=== PATIENT | female | born 1990 | race African-American/Black ===

== ENCOUNTER 2020-08-12 09:59 | Inpatient (IN) | payer OTHER, SELFPAY ==
[2020-08-12] VITALS (60 sets, daily range): BP systolic 72–161; BP diastolic 38–142; PULSE 57–135; RESP 14–21; TEMP 36.1–36.8; O2SAT 82–100; BMI 28.4
[2020-08-12 10:57] LABS: Basophils Percent Auto 0.4 % (0.2-1.2); Eosinophils Absolute Auto 0.1 K/mm3 (0-0.3); Eosinophils Percent Auto 1.2 % (0-4.4); Hematocrit 31.7 % (37.0-47.0); Hemoglobin 10.7 g/dL (12.0-15.0); Immature Granulocyte Absolute 0.08 K/mm3 (0.00-0.031); Lymphocytes Absolute Auto 1.82 K/mm3 (0.9-3.2); Lymphocytes Percent Auto 22.7 % (18.3-44.2); Mean Corpuscular HGB Conc 33.8 g/dl (32-36); Mean Corpuscular Hemoglobin 30.7 pg (26-34); Mean Corpuscular Volume 90.8 fl (80-100); Mean Platelet Volume 9.5 fl (7.4-10.4); Monocytes Absolute Auto 0.6 K/mm3 (0.1-0.6); Monocytes Percent Auto 7.9 % (2.6-8.5); Neutrophils Absolute Auto 5.4 K/mm3 (1.3-6.7); Neutrophils Percent Auto 66.8 % (45.5-73.1); Platelet Count Result 194 k/mm3 (150-375); Red Blood Count 3.49 M/mm3 (4.2-5.4); Red Cell Distribution Width 12.9 % (11.5-14.5)
[2020-08-12] MEDS: LACTATED RINGERS 1,000 ML 125 ML IV CONT (11:06)
--- NOTE | 2020-08-12 11:20 | WPDANESEPPF ---
Anes - Initial Pre Proc Eval Procedure: Operation Date: 08/12/20 12:00 Proposed Procedures p Repeat Section - Park Barrera MD Date/Time: 08/12/20 11:20 Surgeon: Park Barrera MD Pre Op Diagnosis: Patient Data Age: 30 Gender: F Height: Weight: Last Vital Signs Pulse 93 08/12/20 10:45 BP 108/68 08/12/20 10:45 Allergies Allergy/AdvReac Type Severity Reaction Status Date / Time latex Allergy Rash Verified 07/22/20 15:43 Home Medications Medication Instructions Recorded Confirmed Type PNV cmb#95-ferrous fumarate-FA 1 tablet PO DAILY 07/22/20 07/22/20 History [] Laboratory Tests 08/12/20 08/12/20 10:46 10:46 WBC 8.0 K/mm3 K/mm3 (4.5-10.0) RBC 3.49 M/mm3 L M/mm3 (4.2-5.4) Hgb 10.7 g/dL L g/dL (12.0-15.0) Hct 31.7 % L % (37.0-47.0) MCV 90.8 fl fl (80-100) MCH 30.7 pg pg (26-34) MCHC 33.8 g/dl g/dl (32-36) RDW 12.9 % % (11.5-14.5) Plt Count 194 k/mm3 k/mm3 (150-375) MPV 9.5 fl fl (7.4-10.4) Immature Gran % (Auto) 1.0 % H % (0-0.5) Neut % (Auto) 66.8 % % (45.5-73.1) Lymph % (Auto) 22.7 % % (18.3-44.2) Amelia % (Auto) 7.9 % % (2.6-8.5) Eos % (Auto) 1.2 % % (0-4.4) Baso % (Auto) 0.4 % % (0.2-1.2) Lymph # (Auto) 1.82 K/mm3 K/mm3 (0.9-3.2) Amelia # (Auto) 0.6 K/mm3 K/mm3 (0.1-0.6) Eos # (Auto) 0.1 K/mm3 K/mm3 (0-0.3) Baso # (Auto) 0.0 K/mm3 K/mm3 (0.0-0.1) Abs Immat Gran (auto) 0.08 K/mm3 H K/mm3 (0.00-0.031) Absolute Neuts (auto) 5.4 K/mm3 K/mm3 (1.3-6.7) Absolute Nucleated RBC 0.0 K/mm3 K/mm3 (0.0-0.012) Nucleated RBC % 0.0 % % (0.0-0.2) RPR Pending Patient hx anesthesia problems: none Family hx anesthesia problems: none REPLACED BY [facility] Family History Family History (Updated 07/22/20 @ 15:34 by Cruz Mariscal RN) Mother Seizures Bipolar 1 disorder Social History Social History Substance use: current Gender identity (if verbalized by the patient): Female Spiritual care concerns: No Anes - Eval Final PreProcedure Day of Procedure 08/12/20 11:20 Patient weight: overweight Heart: regular rate and rhythm Lungs: clear to auscultation and normal air movement Airway: Mallampati scale class II Neurological: alert and oriented Last oral intake: >/= 8 hours ASA classification: II Emergent: no Anesthetic plan: proceed Anesthesia type and monitoring: regional spinal Informed Consent: The patient's anesthetic plan and its attendant risks and benefits were discussed with the patient/family/POA. Questions were solicited and answers provided to the satisfaction of the patient/family/POA.
--- NOTE | 2020-08-12 11:29 | LDADM ---
This patient, Benigno Morfin, was admitted to OB Post 117 on 08/12/20 at 09:59. Plans for labor, pain management and were discussed with patient. Patient/family oriented to hospital policies and general routines including ID bracelet, bed and alarms, visiting hours, pain management, procedures, bathroom and other care routines, personal items, smoking policy, room service/diet and guest tray routines, infant security routines, and visiting hours. Patient/Family are encouraged to report perceived risks to care and to ask questions if they do not understand what they are told or what they should do. See OBIX for further documentation.
--- NOTE | 2020-08-12 12:09 | PM.IMHP ---
H&P: HPI History of Present Illness Date/Time: 08/12/20 12:09 Chief Complaint: repeat CS Narrative: Pt is a at 39.1 for repeat CS. uncomplicated except by MJ use. Review of Systems Review of Systems: All systems reviewed & are unremarkable except as noted in HPI and below PMFSH Family History Family History (Updated 07/22/20 @ 15:34 by Cruz Mariscal RN) Mother Seizures Bipolar 1 disorder Social History Social History Smoking status: Former smoker Substance use: current Gender identity (if verbalized by the patient): Female Spiritual care concerns: No Meds Home Medications and Allergies Home Medications Medication Instructions Recorded Confirmed Type PNV cmb#95-ferrous fumarate-FA 1 tablet PO DAILY 07/22/20 07/22/20 History [] Allergies Allergy/AdvReac Type Severity Reaction Status Date / Time latex Allergy Rash Verified 07/22/20 15:43 Vital Signs Vital Signs - 24 hr 08/12/20 10:42 08/12/20 10:45 Pulse Rate 85 93 Blood Pressure 109/63 108/68 Exam Const: General: no acute distress Resp: Effort & Inspection: normal respiratory effort Auscultation: clear to auscultation bilaterally Cardio: Rate: regular rate Rhythm: regular rhythm GI: GI Palp: Yes Soft to palpation Extrem: General: normal to inspection H&P: Results Labs Labs: Short CBC 08/12/20 Range/Units 10:46 WBC 8.0 (4.5-10.0) K/mm3 Hgb 10.7 L (12.0-15.0) g/dL Hct 31.7 L (37.0-47.0) % Plt Count 194 (150-375) k/mm3 Assessment and Plan Additional Plan Plan Repeat CS Discussed RBA, pt consented, all questions answered. will proceed.
--- NOTE | 2020-08-12 12:11 | WPDHPUPDATE1 ---
History and Physical Update Update Date/Time: 08/12/20 12:11 History and Physical has been reviewed, including an updated exam of the patient. There are NO changes in the patient's condition. Risks, benefits, and alternatives have been discussed and questions answered. Patient agrees to proceed with procedure.
[2020-08-12 12:20] LABS: Amphetamine Screen Urine Negative (Negative); Barbiturate Screen Urine Negative (Negative); Benzodiazepines Screen Urine Negative (Negative); Cannabinoid Screen Urine Positive (Negative); Cocaine Screen Urine Negative (Negative); Methadone Screen Urine Negative (Negative); Opiate Screen Urine Negative (Negative); Phencyclidine Screen Urine Negative (Negative)
[2020-08-12] MEDS: LACTATED RINGERS 1,000 ML 999 ML IV CONT (13:00)
--- NOTE | 2020-08-12 13:06 | PM.OBPRVD ---
OB - Delivery Note Procedure Delivery date: 08/12/20 Procedure: Procedures Operation Date: 08/12/20 12:00 <No data on this case meets the specified criteria> Repeat CS Intrapartal events: None Route of delivery: Specimen: Yes (placenta) Quantitative Blood Loss (ml): 300 Anesthesia type: Spinal Disposition: floor Complications: none Narrative: The patient was taken to the OR and received spinal anesthesia. She was placed in dorsal supine position with left lateral tilt. SCDs and coon were placed. She was prepped and draped in the normal sterile fashion. A Pfannensteil skin incision was made and carried through to the underlying layer of fascia. The fascia was incised in the midline and then extended laterally using Webb scissors. The muscles were in the midline and the peritoneum was entered bluntly. The peritoneal incision was extended inferiorly and superiorly with care to avoid the bladder. The bladder blade was then inserted, the vesicouterine peritoneum was grasped, incised with Metzenbaum scissors, and a bladder flap created. The bladder blade was reinserted. A low transverse uterine incision was made with a scalpel and extended bluntly. AROM was performed and fluid was noted to be clear. The head was delivered, followed by the remainder of the baby. The baby's oropharynx was suctioned. After 30 seconds, the cord was clamped and cut and the infant was handed off. Cord blood was obtained and the placenta was then removed manually. The uterus was exteriorized. A moist lap sponge was used to curette the endometrium. The uterine incision was then closed with one layer of 0-Vicryl in a running, locking fashion. Good hemostasis was noted. The posterior cul de sac was irrigated with normal saline and cleared of all clot and debris. The uterus was returned to the abdomen. Both lateral gutters were then irrigated. The rectus muscles were inspected and found to be hemostatic. The fascia was reapproximated using 0-Vicryl in running fashion. The subcutaneous tissue was irrigated with normal saline and made hemostatic with Bovie electrocautery. The skin was then closed with 4-0 Vicryl in a subcuticular fashion. Steri strips and a bandage were applied. The uterus was evacuated. The patient tolerated the procedure very well. All counts were correct. She was taken to the recovery room in good condition. Baby Date of : 08/12/20 Time of : 12:36 Weeks of gestation at delivery: 39 Infant gender: Male Weight (pounds): 6 Weight (ounces): 5 presentation: vertex Placenta delivery description: Manual Removal cord vessel description: 3 Vessels score one minute: 8 score five minutes: 9
[2020-08-12] MEDS: ONDANSETRON INJ 4 MG/2 ML VIAL IV PUSH (13:49)
[2020-08-12] MEDS: OXYTOCIN 30 UNITS/NS 500 ML 30 UNITS/500 ML BAG 125 UNITS IV CONT (14:05)
--- NOTE | 2020-08-12 15:33 | OBPPTRN ---
Patient transferred to post room #278 via stretcher. PT unaccompanied other than in open crib. PT received instructions and education per one to one discussion, demonstration and mom baby care guide. No barriers to learning identified. PT was the recipient of all instructions. Oriented to unit, room, information board, rooming in, admission packet and security measures. breast feeding and daily care activities. Patient verbalizes understanding.
[2020-08-12] MEDS: diphenhydrAMINE HCl INJ 50 MG/ML VIAL 12.5 MG IV PUSH (17:48)
[2020-08-12] MEDS: KETOROLAC 30 MG/ML VIAL (*BKC) IV PUSH (17:48)
[2020-08-12] MEDS: LANOLIN (LANSINOH) 7.5 GM CREAM 1 APPLIC TOPICAL (17:49)
[2020-08-12] MEDS: diphenhydrAMINE HCl INJ 50 MG/ML VIAL 25 MG IV PUSH (22:41)
[2020-08-13 05:00] VITALS: BP 120/74; PULSE 71; RESP 16; TEMP 36.5; O2SAT 99
[2020-08-13] MEDS: IBUPROFEN 600 MG TABLET PO ×3 (05:06→17:50)
[2020-08-13] MEDS: HYDROcodone/acetaminophen (*CRX) 5-325 MG TABLET 1 TAB PO ×3 (05:06→14:40)
[2020-08-13 05:24] LABS: Basophils Percent Auto 0.3 % (0.2-1.2); Eosinophils Absolute Auto 0.1 K/mm3 (0-0.3); Hematocrit 32.3 % (37.0-47.0); Hemoglobin 10.9 g/dL (12.0-15.0); Immature Granulocyte Absolute 0.05 K/mm3 (0.00-0.031); Immature Granulocyte Percent A 0.4 % (0-0.5); Lymphocytes Absolute Auto 1.69 K/mm3 (0.9-3.2); Lymphocytes Percent Auto 15.1 % (18.3-44.2); Mean Corpuscular HGB Conc 33.7 g/dl (32-36); Mean Corpuscular Hemoglobin 31.8 pg (26-34); Mean Corpuscular Volume 94.2 fl (80-100); Mean Platelet Volume 9.6 fl (7.4-10.4); Monocytes Absolute Auto 0.8 K/mm3 (0.1-0.6); Monocytes Percent Auto 7.2 % (2.6-8.5); Neutrophils Absolute Auto 8.5 K/mm3 (1.3-6.7); Platelet Count Result 216 k/mm3 (150-375); Red Blood Count 3.43 M/mm3 (4.2-5.4); Red Cell Distribution Width 12.8 % (11.5-14.5); White Blood Count 11.2 K/mm3 (4.5-10.0)
--- NOTE | 2020-08-13 07:42 | WPDANLDNPN2 ---
Anes-Prog Note L&D-Neuraxial Date/Time: 08/13/20 07:42 Neuraxial medications: intrathecal PF morphine Opiod-related complaints: none Patient feedback: Patient satisfied with post-operative pain management.
--- NOTE | 2020-08-13 07:42 | WPDANLDPN2 ---
Anes-Prog Note L&D Date/Time: 08/13/20 07:42 Comfortable throughout: section Neuraxial method: spinal Epidural/Spinal procedure site: clean & non-tender Neuro status: Neuro function grossly intact. Cardiovascular status: normal Respiratory status: normal Airway patency: baseline Mental status: baseline Post-Op hydration status: normal Vital Signs: Last Vital Signs Temp 36.5 C 08/13/20 05:00 Pulse 71 08/13/20 05:00 Resp 16 08/13/20 05:00 BP 120/74 08/13/20 05:00 Pulse Ox 99 08/13/20 05:00 Pain score (VAS): 0 I/O: Intake & Output 08/12/20 08/12/20 08/13/20 15:59 23:59 07:59 Intake Total 1100 Output Total 239 509 8156 Balance 600 -925 -1500 Post-procedural complaints: none Patient feedback: Patient satisfied with anesthetic care.
--- NOTE | 2020-08-13 08:16 | PM.OBPNVD ---
OB - PN: Subj Subjective Date/time seen: 08/13/20 08:16 Patient comments: no complaints baby status: NICU [place] feeding status: pumping and storing Narrative: POD 1 from primary CS. Doing well. Normal lochia. Eating, ambulating, coon out, has voided. OB - PN: Obj Data Labs CBC & Chem 7: 08/13/20 04:51 Labs: Laboratory Results - last 24 hr 08/12/20 08/12/20 08/12/20 10:46 10:46 10:46 WBC 8.0 RBC 3.49 L Hgb 10.7 L Hct 31.7 L MCV 90.8 MCH 30.7 MCHC 33.8 RDW 12.9 Plt Count 194 MPV 9.5 Immature Gran % (Auto) 1.0 H Neut % (Auto) 66.8 Lymph % (Auto) 22.7 Hitchcock % (Auto) 7.9 Eos % (Auto) 1.2 Baso % (Auto) 0.4 Lymph # (Auto) 1.82 Hitchcock # (Auto) 0.6 Eos # (Auto) 0.1 Baso # (Auto) 0.0 Abs Immat Gran (auto) 0.08 H Absolute Neuts (auto) 5.4 Absolute Nucleated RBC 0.0 Nucleated RBC % 0.0 Urine Opiates Screen Negative Urine Methadone Screen Negative Ur Barbiturates Screen Negative Ur Phencyclidine Scrn Negative Ur Amphetamine Screen Negative U Benzodiazepines Scrn Negative Urine Cocaine Screen Negative U Cannabinoids Screen Positive A Blood Type O Positive Antibody Screen Negative 08/13/20 04:51 WBC 11.2 H RBC 3.43 L Hgb 10.9 L Hct 32.3 L MCV 94.2 MCH 31.8 MCHC 33.7 RDW 12.8 Plt Count 216 MPV 9.6 Immature Gran % (Auto) 0.4 Neut % (Auto) 76.0 H Lymph % (Auto) 15.1 L Hitchcock % (Auto) 7.2 Eos % (Auto) 1.0 Baso % (Auto) 0.3 Lymph # (Auto) 1.69 Hitchcock # (Auto) 0.8 H Eos # (Auto) 0.1 Baso # (Auto) 0.0 Abs Immat Gran (auto) 0.05 H Absolute Neuts (auto) 8.5 H Absolute Nucleated RBC 0.0 Nucleated RBC % 0.0 Urine Opiates Screen Urine Methadone Screen Ur Barbiturates Screen Ur Phencyclidine Scrn Ur Amphetamine Screen U Benzodiazepines Scrn Urine Cocaine Screen U Cannabinoids Screen Blood Type Antibody Screen OB - PN A/P Plan day: 1 Plan: routine care Comments: consented for circumcision. Time Spent With Patient Time: Total time spent is greater than 50% in coordination of care (as documented) at patient's floor/unit and/or counseling patient: Exam Narrative: Exam Narrative: NAD abdomen soft, appropriately tender, incision bandaged Extremities nontender with 1+ edema
[2020-08-13 09:15] VITALS: BP 107/59; PULSE 68; RESP 18; TEMP 36.4; O2SAT 99
[2020-08-13] MEDS: MULTIVIT/MIN/PREN/FOL AC/IRON TABLET 1 TAB PO (10:12)
[2020-08-13] MEDS: DOCUSATE SODIUM 100 MG CAPSULE PO ×2 (10:13→17:50)
--- NOTE | 2020-08-13 14:19 | PC.NURSE ---
0937 Pt given the Marijuana and Breast feeding handout ; pt states that Dr. Vila spoke to her about this, recommending to not breast feed is she is going to smoke marijauna. Pt wants to continue breast feeding.
[2020-08-13] MEDS: SIMETHICONE 80 MG TAB.CHEW PO (17:51)
[2020-08-13] MEDS: HYDROcodone/acetaminophen (*CRX) 10-325 MG TABLET 1 TAB PO ×2 (17:51→21:08)
[2020-08-13 21:05] VITALS: BP 110/71; PULSE 74; RESP 18; TEMP 36.6; O2SAT 98
--- NOTE | 2020-08-13 22:20 | PC.NURSE ---
Patient viewed the discharge video Mother & Baby Care, The First Two Weeks . Patient was given the opportunity and encouraged to ask questions. Patient verbalized understanding of information shared and has been given the mother/baby guide for home reference.
[2020-08-14] MEDS: HYDROcodone/acetaminophen (*CRX) 5-325 MG TABLET 1 TAB PO ×3 (00:49→09:15)
[2020-08-14] MEDS: IBUPROFEN 600 MG TABLET PO ×2 (00:50→09:14)
[2020-08-14] MEDS: MULTIVIT/MIN/PREN/FOL AC/IRON TABLET 1 TAB PO (09:14)
[2020-08-14] MEDS: SIMETHICONE 80 MG TAB.CHEW PO (09:14)
[2020-08-14] MEDS: DOCUSATE SODIUM 100 MG CAPSULE PO (09:14)
--- NOTE | 2020-08-14 09:45 | P.PNOB_ITS ---
OB - PN: Subj Subjective Date/time seen: 08/14/20 09:45 Interval history: Doing great, just sore, wants to go home. Patient comments: no complaints and pain well controlled [place] baby status: doing well feeding status: breast and bottle feeding OB - PN: Obj Data Labs CBC & Chem 7: 08/13/20 04:51 OB - PN A/P Plan day: 2 Plan: routine care and discharge home Comments: Fu 4 weeks. Precautions and discharge instructions given. Time Spent With Patient Time: Total time spent is greater than 50% in coordination of care (as docume nted) at patient's floor/unit and/or counseling patient: Exam Narrative: Exam Narrative: NAD abdomen soft, appropriately tender, incision CDI Extremities nontender with 1+ edema
--- NOTE | 2020-08-14 09:51 | P.DS_ITS ---
DS: Admitting Diagnosis Admitting Diagnosis Admitting Diagnosis: term IUP, prior CS DS: Discharge Diagnosis Discharge Diagnosis (1) delivery delivered: Code(s): O82 - Encounter for delivery without indication Status: Acute OB - DS: Summary OB Procedures : Ultrasound OB Procedures Intrapartum: OB Procedures: : None Peripartum Data Delivery Method: Section Procedures: Procedures Operation Date: 08/12/20 12:00 Actual Procedure Side Surgeon p Repeat Section Park Barrera MD complications: none Status at Discharge Functional status at discharge: independent ambulation Time Spent with Patient Time attestation: Total time spent providing and/or coordinating discharge services: Exam Narrative: Exam Narrative: NAD abdomen soft, appropriately tender, incision CDI Discharge Plan Discharge Attending physician on discharge: Park Barrera Discharging Clinician: Park Barrera Anticipated Discharge Date/Time: 08/14/20 15:00 Patient Disposition: Home, Self-Care Activity: may shower, may drive after 2 weeks and pelvic rest Diet: as tolerated Patient Instructions: Antibiotic Form Stand Alone Forms: General Discharge Information Follow-up/Referrals: Park Barrera MD [Physician] - (1 week) Discharge Medications: New hydrocodone-acetaminophen 5-325 mg Tablet 1 tablet PO Q4-6H PRN (Reason: Moderate Pain (4-6)) Qty: 30 RF: 0 docusate sodium 100 mg Capsule 100 mg PO BID PRN (Reason: constipation) Qty: 60 RF: 1 ibuprofen 600 mg Tablet 600 mg PO Q6H PRN (Reason: Cramping) Qty: 60 RF: 1 Continued PNV cmb#95-ferrous fumarate-FA [] 28 mg iron- 800 mcg Tablet 1 tablet PO DAILY RF: 0 Date of admission: 08/12/20 09:59 Primary Care Provider: PHYSICIAN,SALES AND SERVICE ADVISOR Admitting Provider: Park Barrera Attending physician on admission: Park Barrera Condition: Stable
[2020-08-14 10:12] VITALS: PULSE 74; RESP 18; O2SAT 98
[2020-08-15 09:26] LABS: Rapid Plasma Reagin Non-Reactive (NonReactive)
[2020-08-16 09:06] VITALS: BP 116/81; PULSE 77; RESP 16; TEMP 36.8; O2SAT 100
== END 2020-08-14 12:35 | disposition home or self-care (01) | DRG 540 ==
LOC: ANHOBPP 10:07 → ANHOB2 15:38
PROVIDERS: Admitting Provider Obstetrics & Gynecology; Visit Provider Obstetrics & Gynecology
PROC: 10D00Z1 Extraction of Products of Conception, Low, Open Approach (ICD-10-PCS; CPT 59514; principal; 2020-08-12 12:00)
DX: O34.211 Maternal care for low transverse scar from previous cesarean delivery (principal); Z37.0 Single live birth; Z3A.39 39 weeks gestation of pregnancy; O99.324 Drug use complicating childbirth; F12.90 Cannabis use, unspecified, uncomplicated
CPT/HCPCS: 36415; 80307; 85025; 86592; 86850; 86900; 86901; A9270; J0131; J1200; J1885; J2210; J2274; J2405; J2590; J7120

== ENCOUNTER 2020-08-30 12:45 | Outpatient (CLI) | payer OTHER, SELFPAY ==
[2020-08-30] VITALS (11 sets, daily range): BP systolic 105–179; BP diastolic 77–101; PULSE 57–75; RESP 18; TEMP 36.4
[2020-08-30 13:25] LABS: Eosinophils Absolute Auto 0.2 K/mm3 (0-0.3); Eosinophils Percent Auto 3.9 % (0-4.4); Hematocrit 35.5 % (37.0-47.0); Immature Granulocyte Absolute 0.01 K/mm3 (0.00-0.031); Immature Granulocyte Percent A 0.2 % (0-0.5); Lymphocytes Absolute Auto 1.36 K/mm3 (0.9-3.2); Lymphocytes Percent Auto 33.3 % (18.3-44.2); Mean Corpuscular Volume 96.7 fl (80-100); Mean Platelet Volume 8.7 fl (7.4-10.4); Monocytes Absolute Auto 0.4 K/mm3 (0.1-0.6); Monocytes Percent Auto 9.1 % (2.6-8.5); Neutrophils Absolute Auto 2.1 K/mm3 (1.3-6.7); Neutrophils Percent Auto 52.5 % (45.5-73.1); Nucleated Red Blood Cells Perc 0.5 % (0.0-0.2); Platelet Count Result 348 k/mm3 (150-375); Red Blood Count 3.67 M/mm3 (4.2-5.4); Red Cell Distribution Width 13.5 % (11.5-14.5); White Blood Count 4.1 K/mm3 (4.5-10.0)
--- NOTE | 2020-08-30 13:30 | PC.NURSE ---
Patient reports occasional marijuana use and former smoker.
[2020-08-30 13:37] LABS: Alanine Aminotransferase 31 U/L (4-35); Albumin Level 3.8 g/dL (3.5-5.1); Alkaline Phosphatase 98 U/L (38-126); Anion Gap 9 mmol/L (8-16); Aspartate Amino Transferase 24 U/L (14-36); Bilirubin,Total 0.5 mg/dL (0.2-1.3); Blood Urea Nitrogen 11 mg/dL (7-17); Calcium 9.1 mg/dL (8.4-10.2); Carbon Dioxide 25 mmol/L (22-30); Chloride 110 mmol/L (98-107); Estimated Glomerular Filt Rate > 60; Glucose 88 mg/dL (65-105); Sodium 144 mmol/L (137-145); Uric Acid 6.4 mg/dL (2.5-7.5)
--- NOTE | 2020-08-30 14:05 | PC.NURSE ---
Dr. Barrera called and notified regarding patient's arrival, serial blood pressures, lab results, and patient refusing to be admitted and treated for high blood pressures. Dr. Barrera ordering for patient to be admitted, treated for blood pressures with magnesium sulfate, and oral medications of potassium chloride and labetalol. Dr. Barrera stating patient must sign out AMA if she is refusing to stay and be treated.
[2020-08-30] MEDS: POTASSIUM CHLORIDE 20 MEQ TABLET 40 MEQ PO (14:25)
[2020-08-30] MEDS: LABETALOL HCL 100 MG TABLET 200 MG PO (14:35)
--- NOTE | 2020-08-30 15:00 | PC.NURSE ---
POC discussed with patient to have patient admitted and started on magnesium sulfate. Patient refusing to stay and stating that she has no childcare for her children. Patient requesting to sign out against medical advice. Patient educated on risks of stroke, seizures, and related to high blood pressure and importance of medication to treat high blood pressure. Patient instructed to return to hospital with any headache, dizziness, blurred vision, or signs and symptoms of high blood pressure. Pre-eclampsia signs and symptoms handout given and against medical advice form signed by patient.
== END 2020-08-30 15:05 | disposition left against medical advice (07) ==
LOC: ANHOBOP 12:50 → ANHOBPP 12:51
PROVIDERS: Visit Provider Obstetrics & Gynecology
DX: O16.5 Unspecified maternal hypertension, complicating the puerperium (principal)
CPT/HCPCS: 36415; 80053; 84550; 85025; 99199; A9270

== ENCOUNTER 2020-09-01 11:05 | Inpatient (IN) | payer OTHER, SELFPAY ==
[2020-09-01] VITALS (63 sets, daily range): BP systolic 116–193; BP diastolic 71–114; PULSE 58–167; RESP 16–18; TEMP 36.1–36.6; O2SAT 75–100; BMI 22.2
--- NOTE | ~2020-09-01 | CT_ITS ---
EXAMINATION: CT brain wo con DATE: 09/01/2020 16:48 INDICATION: Seizure. TECHNIQUE: Computed tomography (CT) of the head was performed without intravenous contrast. The mA wa s adjusted according to patient size. Iterative reconstruction technique was employed. The dose-lengt h product was 605.33 mGy-cm. COMPARISON: None FINDINGS: There are scattered areas of low attenuation in the cerebral white matter. There is no intr acranial hemorrhage, acute infarction, or abnormal intracranial mass lesion. The ventricles are yecenia l in size. There is mild mucosal thickening in the paranasal sinuses. The mastoid air cells are yecenia l. IMPRESSION: 1. Mild white matter disease, likely acute hypertensive encephalopathy. Reviewed, dictated and finalized at location A.
[2020-09-01 11:47] LABS: Basophils Percent Auto 0.4 % (0.2-1.2); Eosinophils Absolute Auto 0.2 K/mm3 (0-0.3); Eosinophils Percent Auto 4.4 % (0-4.4); Hematocrit 33.6 % (37.0-47.0); Immature Granulocyte Absolute 0.02 K/mm3 (0.00-0.031); Immature Granulocyte Percent A 0.4 % (0-0.5); Lymphocytes Absolute Auto 1.28 K/mm3 (0.9-3.2); Lymphocytes Percent Auto 25.8 % (18.3-44.2); Mean Corpuscular HGB Conc 32.7 g/dl (32-36); Mean Corpuscular Hemoglobin 29.8 pg (26-34); Mean Corpuscular Volume 91.1 fl (80-100); Mean Platelet Volume 8.4 fl (7.4-10.4); Monocytes Absolute Auto 0.3 K/mm3 (0.1-0.6); Monocytes Percent Auto 6.4 % (2.6-8.5); Neutrophils Absolute Auto 3.1 K/mm3 (1.3-6.7); Neutrophils Percent Auto 62.6 % (45.5-73.1); Platelet Count Result 348 k/mm3 (150-375); Red Blood Count 3.69 M/mm3 (4.2-5.4); Red Cell Distribution Width 13.3 % (11.5-14.5)
[2020-09-01 11:59] LABS: Alanine Aminotransferase 24 U/L (4-35); Albumin Level 4.2 g/dL (3.5-5.1); Alkaline Phosphatase 98 U/L (38-126); Anion Gap 11 mmol/L (8-16); Aspartate Amino Transferase 25 U/L (14-36); Bilirubin,Total 0.6 mg/dL (0.2-1.3); Blood Urea Nitrogen 8 mg/dL (7-17); Calcium 9.7 mg/dL (8.4-10.2); Carbon Dioxide 24 mmol/L (22-30); Chloride 110 mmol/L (98-107); Estimated Glomerular Filt Rate > 60; Glucose 111 mg/dL (65-105); Potassium 3.1 mmol/L (3.4-5.0); Sodium 145 mmol/L (137-145); Uric Acid 4.5 mg/dL (2.5-7.5)
[2020-09-01] MEDS: LABETALOL HCL 100 MG TABLET 200 MG PO (13:05)
--- NOTE | 2020-09-01 13:11 | PC.NURSE ---
1222--Report to Dr. Baig re: v.s., labwork, pt's reports of h/a and visual disturbances, and pt. taking labatalol approx. 200mg at around 0800 this a.m. Orders to give a dose of labetalol 200mg po now.
--- NOTE | 2020-09-01 13:13 | PC.NURSE ---
1240--After talking to the pt. she has told me that she has cut out her caffeine drastically the last few days. She states she used to drink 4-5 pepsi's per day and cut them out. She also reports that she has only taken Tylenol 500mg X1 for her h/a. I relayed this to Dr. Baig over the phone and he ordered Fiorcet 2 tabs to be given now and hold the labetalol for now unless BP continues to be high.
--- NOTE | 2020-09-01 13:45 | PC.NURSE ---
1215--DTR's 2+, no clonus noted, no swelling noted, pt's denies epigastric pain and nausea and reports h/a at 4/10.
--- NOTE | 2020-09-01 13:46 | PC.NURSE ---
0736--Phone call to Dr. Baig to update on pt's v.s. and reports of h/a 12/02. No answer, left message.
--- NOTE | 2020-09-01 13:59 | PC.NURSE ---
4460--Phone call to Dr. Baig, no answer left message.
[2020-09-01] MEDS: LABETALOL HCL INJ 100 MG/20 ML VIAL 20 MG IV PUSH (14:19)
--- NOTE | 2020-09-01 14:22 | PC.NURSE ---
2024--Phone call received from Dr. Baig. Orders received for magnesium sulfate and IV labetalol per protocol.
--- NOTE | 2020-09-01 14:22 | PC.NURSE ---
1420--Pt. declines Magnesium sulfate at this time, but will allow IV placement for labetalol. Education to pt. re: risk of seizures, stroke, and potential with elevated BP's that go untreated. Pt. is here with her son and has no one to help her with him. She states she cannot get anyone here to help her with him and has no one to come take him home.
[2020-09-01] MEDS: LABETALOL HCL INJ 100 MG/20 ML VIAL 40 MG IV PUSH (14:35)
[2020-09-01] MEDS: LABETALOL HCL INJ 100 MG/20 ML VIAL 80 MG IV PUSH (14:48)
[2020-09-01] MEDS: hydrALAZINE HCL 20 MG/ML VIAL (15:10)
[2020-09-01] MEDS: diazePAM INJ (*CRX) 10 MG/2 ML SYRINGE (15:35)
[2020-09-01] MEDS: MAGNESIUM SULF 4 GM/WATER100ML 4 GM/100 ML BAG IVPB (15:37)
[2020-09-01] MEDS: hydrALAZINE HCL 20 MG/ML VIAL 10 MG IV PUSH (15:47)
[2020-09-01] MEDS: MAGNESIUM SULF 20GM/WATER500ML 500 ML 50 MG IV CONT (16:16)
--- NOTE | 2020-09-01 16:18 | PC.NURSE ---
1531--Upon entering pt's room pt. found to be in bed in semifowler's position, holding in her L. arm, non-responsive. Infant removed from pt. to infant seat and rapid response called at this time.
--- NOTE | 2020-09-01 16:20 | PC.NURSE ---
1515--Pt. on the phone with her brother, states she is trying to get him to come so she can take magnesium sulfate gtt per orders.
--- NOTE | 2020-09-01 16:39 | PM.IMHP ---
H&P: HPI History of Present Illness Date/Time: 09/01/20 16:39 This patient is a 30-year-old multiparous female who is 20 days from a delivery. She presented with headache. She was evaluated and found have elevated blood pressures. She denied any edema. Her headache was occipital. She denies any changes in her vision. She had severe range blood pressures shortly after admission. She was observed for a period time. The patient was refusing magnesium citrate as her blood pressures shira. Her elevated blood pressures were refractory to the severe range blood pressure protocol recommended by the [employer]. She was seen earlier in the week for elevated blood pressures and she refused treatment and left against medical advice. After 4 hours of observation she was witnessed to have tonic-clonic seizure activity. After seizure activity she was combative. Patient was quickly given IV Valium and she became sedate. Review of her labs was normal. Chief Complaint: Headache Review of Systems Constitutional: Constitutional: Reports no additional constitutional complaints, Denies fatigue, Denies headache(s), Denies lethargy and Denies weakness Eyes: Eyes: Reports no additional eye complaints, Denies blurry vision and Denies photophobia ENT: Reports as per HPI, Denies headache(s) and Denies neck pain Cardiovascular: Cardiovascular: Denies chest pain, Denies diaphoresis, Denies leg edema, Denies palpitations and Denies dyspnea Respiratory: Respiratory: Denies hemoptysis, Denies dyspnea and Denies wheezing Gastrointestinal: Gastrointestinal: Denies abdominal pain, Denies melena, Denies bloating, Denies hematochezia, Denies nausea and Denies vomiting Genitourinary: Genitourinary: Reports no additional female genitourinary complaints Musculoskeletal: Musculoskeletal: Denies joint swelling, Denies neck pain, Denies numbness and Denies stiffness Neurologic: Denies Abnormal speech present, Denies confusion, Denies headache(s), Denies numbness and Denies weakness Psychiatric: Psychiatric: Denies anxiety, Denies confusion, Denies depression, Denies homicidal ideation and Denies suicidal ideation Endocrine: Endocrine: Denies fatigue and Denies palpitations Allergic/Immunologic: Allergic/Immunologic: Denies wheezing [facility] Family History Family History (Updated 07/22/20 @ 15:34 by Cruz Mariscal RN) Mother Seizures Bipolar 1 disorder Social History Social History Smoking status: Former smoker Substance use: current Gender identity (if verbalized by the patient): Female Spiritual care concerns: No Meds Home Medications and Allergies Home Medications Medication Instructions Recorded Confirmed Type PNV cmb#95-ferrous fumarate-FA 1 tablet PO DAILY 07/22/20 07/22/20 History [] docusate sodium 100 mg PO BID PRN #60 cap 08/14/20 Rx ibuprofen 600 mg PO Q6H PRN #60 tablet 08/14/20 08/30/20 Rx labetalol 200 mg PO Q12H #14 tablet 08/30/20 Rx Allergies Allergy/AdvReac Type Severity Reaction Status Date / Time latex Allergy Rash Verified 08/30/20 13:01 Vital Signs Vital Signs - 24 hr 09/01/20 11:30 09/01/20 11:45 09/01/20 12:00 Pulse Rate 89 76 74 Blood Pressure 141/79 H 150/90 H 167/95 H Pulse Oximetry 09/01/20 12:12 09/01/20 12:15 09/01/20 12:30 Pulse Rate 66 64 69 Blood Pressure 160/98 H 173/99 H 169/93 H Pulse Oximetry 09/01/20 12:45 09/01/20 13:00 09/01/20 13:05 Pulse Rate 69 69 69 Blood Pressure 171/99 H 182/98 H Pulse Oximetry 09/01/20 13:15 09/01/20 13:31 09/01/20 13:39 Pulse Rate 58 L 66 66 Blood Pressure 186/93 H 188/98 H 193/104 H Pulse Oximetry 09/01/20 13:46 09/01/20 14:01 09/01/20 14:18 Pulse Rate 62 64 65 Blood Pressure 192/99 H 181/95 H 188/88 H Pulse Oximetry 09/01/20 14:19 09/01/20 14:29 09/01/20 14:30 Pulse Rate 65 68 68 Blood Pressure 182/93 H 187/95 H Pulse Oximetry 09/01/20 14:35 06
--- NOTE | 2020-09-01 17:09 | PC.NURSE ---
1622--Pt. to CT per MD orders via bed.
--- NOTE | 2020-09-01 17:10 | PC.NURSE ---
165--Pt. returned from CT, her brother is present with infant at this time. Awaiting to transfer pt. to IMU per MD orders.
--- NOTE | 2020-09-01 18:00 | PC.NURSE ---
confirmed with mom that baby was to go home with brother, Kd . Drivers license copied and baby sent home in carseat with Kd. He denies any needs. Baby supplies sent home with him.
--- NOTE | 2020-09-01 18:15 | PC.NURSE ---
1750--Pt. up to room 202 via bed with her belongings. Pt. gave permission for her infant son to go home with her brother Kd Garzon. Photo ID copied and placed on pt. chart.
[2020-09-01 18:19] LABS: Basophils Percent Auto 0.3 % (0.2-1.2); Eosinophils Absolute Auto 0.2 K/mm3 (0-0.3); Eosinophils Percent Auto 3.4 % (0-4.4); Hematocrit 36.6 % (37.0-47.0); Hemoglobin 11.7 g/dL (12.0-15.0); Immature Granulocyte Absolute 0.03 K/mm3 (0.00-0.031); Immature Granulocyte Percent A 0.5 % (0-0.5); Lymphocytes Absolute Auto 1.03 K/mm3 (0.9-3.2); Lymphocytes Percent Auto 15.8 % (18.3-44.2); Mean Corpuscular Hemoglobin 29.3 pg (26-34); Mean Corpuscular Volume 91.5 fl (80-100); Mean Platelet Volume 8.5 fl (7.4-10.4); Monocytes Absolute Auto 0.3 K/mm3 (0.1-0.6); Monocytes Percent Auto 5.2 % (2.6-8.5); Neutrophils Absolute Auto 4.9 K/mm3 (1.3-6.7); Neutrophils Percent Auto 74.8 % (45.5-73.1); Platelet Count Result 377 k/mm3 (150-375); Red Cell Distribution Width 13.3 % (11.5-14.5); White Blood Count 6.5 K/mm3 (4.5-10.0)
[2020-09-01 19:02] LABS: Alanine Aminotransferase 24 U/L (4-35); Albumin Level 4.2 g/dL (3.5-5.1); Alkaline Phosphatase 132 U/L (38-126); Anion Gap 11 mmol/L (8-16); Aspartate Amino Transferase 25 U/L (14-36); Bilirubin,Total 0.5 mg/dL (0.2-1.3); Blood Urea Nitrogen 7 mg/dL (7-17); Calcium 9.3 mg/dL (8.4-10.2); Carbon Dioxide 22 mmol/L (22-30); Chloride 109 mmol/L (98-107); Estimated Glomerular Filt Rate > 60; Glucose 105 mg/dL (65-105); Potassium 3.2 mmol/L (3.4-5.0); Sodium 142 mmol/L (137-145); Uric Acid 6.2 mg/dL (2.5-7.5)
[2020-09-01] MEDS: LABETALOL HCL 100 MG TABLET 400 MG PO (20:08)
[2020-09-01 20:37] LABS: Glucose Point of Care 97 mg/dl (65-105)
[2020-09-01] MEDS: LACTATED RINGERS 1,000 ML 75 ML (21:04)
--- NOTE | 2020-09-01 21:34 | ADMGEN ---
This patient, Benigno Morfin, was admitted to IMU Room 202-. Patient/family oriented to hospital policies and general routines including ID bracelet, bed and alarms, visiting hours, pain management, procedures, bathroom and other care routines, personal items, smoking policy, room service/diet, and visiting hours. Information on how to activate the Rapid Response Team has been discussed. Patient/Family are encouraged to report perceived risks to care and to ask questions if they do not understand what they are told or what they should do. arrived from OB at approx 1800
[2020-09-01] MEDS: ONDANSETRON INJ 4 MG/2 ML VIAL 8 MG IV PUSH (22:04)
[2020-09-02] VITALS (15 sets, daily range): BP systolic 116–160; BP diastolic 73–95; PULSE 79–104; RESP 12–16; TEMP 36.2–36.8; O2SAT 96–100
[2020-09-02] MEDS: MAGNESIUM SULF 20GM/WATER500ML 500 ML 50 MG IV CONT ×2 (02:09→12:42)
[2020-09-02] MEDS: LACTATED RINGERS 1,000 ML 75 ML IV CONT ×2 (05:13→18:56)
--- NOTE | 2020-09-02 11:14 | PM.GYNPNOP ---
CLOCK MECHANIC - A/P Assessment and plan (1) Eclampsia: Code(s): O15.9 - Eclampsia, unspecified as to time period Status: Acute (2) state: Code(s): Z39.2 - Encounter for routine follow-up Status: Acute Postoperative Procedures: COntinue monitoring. Continue mag for 24 hours. Discussed with pt need to watch overnight after mag off to make sure BPs ok off magnesium. Time Spent With Patient Time: Total time spent is greater than 50% in coordination of care (as documented) at patient's floor/unit and/or counseling patient: Time with patient: 15 - 25 minutes CLOCK MECHANIC- PN:Mia Post-Op Subjective Date/time seen: 09/02/20 11:14 Interval history: Kaykay is feeling much better. LAI resolved. BPs 110s-140s/70s-90s on magnesium. She reports some blurry vision and weakness, but overall feels much better. Exam Narrative: Exam Narrative: NAD abdomen soft, nontender, fundus firm below the umbilicus Extremities nontender, 1+ edema CLOCK MECHANIC - PN: Obj Data Vital Signs Vital Signs: Vital Signs - 24 hr 09/01/20 11:30 09/01/20 11:45 09/01/20 12:00 Temperature Pulse Rate 89 76 74 Respiratory Rate Blood Pressure 141/79 H 150/90 H 167/95 H Pulse Oximetry 09/01/20 12:12 09/01/20 12:15 09/01/20 12:30 Temperature Pulse Rate 66 64 69 Respiratory Rate Blood Pressure 160/98 H 173/99 H 169/93 H Pulse Oximetry 09/01/20 12:45 09/01/20 13:00 09/01/20 13:05 Temperature Pulse Rate 69 69 69 Respiratory Rate Blood Pressure 171/99 H 182/98 H Pulse Oximetry 09/01/20 13:15 09/01/20 13:31 09/01/20 13:39 Temperature Pulse Rate 58 L 66 66 Respiratory Rate Blood Pressure 186/93 H 188/98 H 193/104 H Pulse Oximetry 09/01/20 13:46 09/01/20 14:01 09/01/20 14:18 Temperature Pulse Rate 62 64 65 Respiratory Rate Blood Pressure 192/99 H 181/95 H 188/88 H Pulse Oximetry 09/01/20 14:19 09/01/20 14:29 09/01/20 14:30 Temperature Pulse Rate 65 68 68 Respiratory Rate Blood Pressure 182/93 H 187/95 H Pulse Oximetry 09/01/20 14:35 09/01/20 14:45 09/01/20 14:48 Temperature Pulse Rate 68 68 68 Respiratory Rate Blood Pressure 189/99 H Pulse Oximetry 09/01/20 15:00 09/01/20 15:15 09/01/20 15:31 Temperature Pulse Rate 76 79 83 Respiratory Rate Blood Pressure 181/102 H 178/96 H 172/107 H Pulse Oximetry 09/01/20 15:34 09/01/20 15:35 09/01/20 15:38 Temperature Pulse Rate Respiratory Rate Blood Pressure Pulse Oximetry 75 L 78 L 100 09/01/20 15:43 09/01/20 15:45 09/01/20 15:48 Temperature Pulse Rate 88 Respiratory Rate Blood Pressure 177/93 H Pulse Oximetry 100 100 09/01/20 15:50 09/01/20 15:56 09/01/20 16:00 Temperature Pulse Rate 102 H 107 H 110 H Respiratory Rate Blood Pressure 156/94 H 143/82 H 133/75 Pulse Oximetry 100 09/01/20 16:01 09/01/20 16:06 09/01/20 16:11 Temperature Pulse Rate Respiratory Rate Blood Pressure Pulse Oximetry 97 97 97 09/01/20 16:15 09/01/20 16:16 09/01/20 16:21 Temperature Pulse Rate 107 H Respiratory Rate Blood Pressure 125/71 Pulse Oximetry 97 96 09/01/20 16:53 09/01/20 16:54 09/01/20 16:58 Temperature Pulse Rate 118 H Respiratory Rate Blood Pressure 127/82 Pulse Oximetry 95 97 09/01/20 17:00 09/01/20 17:03 09/01/20 17:04 Temperature Pulse Rate 120 H 94 Respiratory Rate Blood Pressure 141/81 H 177/93 H Pulse Oximetry 98 100 09/01/20 17:08 09/01/20 17:13 09/01/20 17:18 Temperature Pulse Rate Respiratory Rate Blood Pressure Pulse Oximetry 97 98 95 09/01/20 17:23 09/01/20 17:28 09/01/20 17:33 Temperature Pulse Rate Respiratory Rate Blood Pressure Pulse Oximetry 100 100 100 09/01/20 17:38 09/01/20 17:43 09/01/20 17:44 Temperature Pulse Rate 102 H Respiratory Rate Blood Pressure 130/96 H Pulse Oximetry 100 100
[2020-09-02] MEDS: POTASSIUM CHLORIDE 20 MEQ TABLET 40 MEQ PO ×3 (12:52→21:24)
--- NOTE | 2020-09-02 14:49 | PM.IMCN ---
Assessment and Plan Assessment and plan (1) Eclampsia: Code(s): O15.9 - Eclampsia, unspecified as to time period Status: Acute Assessment and Plan: 09/02/20 14:42 Patient 30-year-old female status post 20 days presented emergency depart from delivery patient presented emergency department with a complaint of head and was significant elevated blood pressure, patient was seen by OBGYN and suspect patient is having Eclampsia initially patient combative and agitated however patient went into seizure and IV magnesium was started and transfer the patient to IMU, initially patient was given magnesium for g IV loading dose thereafter continue IV magnesium 20 g 50 cc an hour patient is also being treated labetalol 400 mg p.o. twice a day, currently patient states feeling much better, blood pressure is controlled and patient has no complaint, patient was seen by her Ob plan is to once patient completes IV magnesium, will monitor patient overnight and if remains clinically stable her blood pressure remains stable will discharge the patient home tomorrow. (2) state: Code(s): Z39.2 - Encounter for routine follow-up Status: Acute Assessment and Plan: Patient is 20 days patient is seen by her Ob and further recommendation to (3) delivery delivered: Code(s): O82 - Encounter for delivery without indication Status: Acute Assessment and Plan: Patient clinically stable, seen by her Ob HPI Data of Consult Consult date: 09/02/20 Requesting Physician: Park Barrera MD Primary Care Provider: RESEARCH ASSISTANT MEMBER PHYSICIAN Consult Narrative Narrative: 09/02/20 14:42 Patient 30-year-old female status post 20 days presented emergency depart from delivery patient presented emergency department with a complaint of head and was significant elevated blood pressure, patient was seen by OBGYN and suspect patient is having Eclampsia initially patient combative and agitated however patient went into seizure and IV magnesium was started and transfer the patient to IMU, initially patient was given magnesium for g IV loading dose thereafter continue IV magnesium 20 g 50 cc an hour patient is also being treated labetalol 400 mg p.o. twice a day, currently patient states feeling much better, blood pressure is controlled and patient has no complaint, patient was seen by her Ob plan is to once patient completes IV magnesium, will monitor patient overnight and if remains clinically stable her blood pressure remains stable will discharge the patient home tomorrow. Review of Systems Review of Systems: All systems reviewed & are unremarkable except as noted in HPI and below PMFSH Family History Family History (Updated 09/01/20 @ 21:30 by Mackeznie Granado, RN) Mother Seizures Bipolar 1 disorder Hypertension Social History Social History Smoking status: Never smoker Alcohol intake: never Substance use: current Substance use type: marijuana Other substance usage details: not since baby Gender identity (if verbalized by the patient): Female Spiritual care concerns: No Meds Home Medications and Allergies Home Medications Medication Instructions Recorded Confirmed Type PNV cmb#95-ferrous fumarate-FA 1 tablet PO DAILY 07/22/20 09/01/20 History [] docusate sodium 100 mg PO BID PRN #60 cap 08/14/20 09/01/20 Rx ibuprofen 600 mg PO Q6H PRN #60 tablet 08/14/20 09/01/20 Rx labetalol 200 mg PO Q12H #14 tablet 08/30/20 09/01/20 Rx Allergies Allergy/AdvReac Type Severity Reaction Status Date / Time latex Allergy Rash Verified 08/30/20 13:01 Vital Signs Vital Signs - 24 hr 09/01/20 15:00 09/01/20 15:15 09/01/20 15:31 Temperature Pulse Rate 76 79 83 Respiratory Rate Blood Pressure 181/102 H 178/96 H 172/107 H Pulse Oximetry 09/01/20 15:34 09/01/20 15:35 09/01/20 15:38 Temperat
[2020-09-02 15:38] LABS: Anion Gap 9 mmol/L (8-16); Blood Urea Nitrogen 6 mg/dL (7-17); Calcium 7.1 mg/dL (8.4-10.2); Carbon Dioxide 26 mmol/L (22-30); Chloride 104 mmol/L (98-107); Estimated CRCL calculation 72 ml/min; Estimated Glomerular Filt Rate > 60; Glucose 97 mg/dL (65-105); Magnesium 6.6 mg/dL (1.6-2.3); Potassium 2.6 mmol/L (3.4-5.0); Sodium 139 mmol/L (137-145)
[2020-09-02] MEDS: LABETALOL HCL 100 MG TABLET 200 MG PO (18:30)
[2020-09-03] VITALS (23 sets, daily range): BP systolic 149–187; BP diastolic 79–102; PULSE 67–100; RESP 16–20; TEMP 35.8–36.6; O2SAT 99–100
[2020-09-03] MEDS: LABETALOL HCL 100 MG TABLET 200 MG PO ×2 (00:33→11:21)
[2020-09-03 05:22] LABS: Hematocrit 33.1 % (37.0-47.0); Hemoglobin 11.1 g/dL (12.0-15.0); Mean Corpuscular HGB Conc 33.5 g/dl (32-36); Mean Corpuscular Hemoglobin 29.9 pg (26-34); Mean Corpuscular Volume 89.2 fl (80-100); Mean Platelet Volume 8.7 fl (7.4-10.4); Platelet Count Result 413 k/mm3 (150-375); Red Blood Count 3.71 M/mm3 (4.2-5.4); Red Cell Distribution Width 13.2 % (11.5-14.5); White Blood Count 3.9 K/mm3 (4.5-10.0)
[2020-09-03 05:46] LABS: Anion Gap 6 mmol/L (8-16); Blood Urea Nitrogen 9 mg/dL (7-17); Calcium 8.1 mg/dL (8.4-10.2); Carbon Dioxide 24 mmol/L (22-30); Chloride 112 mmol/L (98-107); Estimated CRCL calculation 91 ml/min; Estimated Glomerular Filt Rate > 60; Glucose 77 mg/dL (65-105); Magnesium 2.8 mg/dL (1.6-2.3); Potassium 3.5 mmol/L (3.4-5.0); Sodium 142 mmol/L (137-145)
[2020-09-03] MEDS: LABETALOL HCL 100 MG TABLET 400 MG PO (06:52)
[2020-09-03] MEDS: LACTATED RINGERS 1,000 ML 75 ML IV CONT ×2 (08:15→21:42)
[2020-09-03] MEDS: POTASSIUM CHLORIDE 20 MEQ TABLET 40 MEQ PO (09:31)
--- NOTE | 2020-09-03 10:09 | PM.OBPNVD ---
OB - PN: Subj Subjective Date/time seen: 09/03/20 10:09 Patient comments: no complaints OB - PN: Obj Data Labs CBC & Chem 7: 09/03/20 04:17 09/03/20 04:17 Labs: Laboratory Results - last 24 hr 09/02/20 09/03/20 09/03/20 15:12 04:17 04:17 WBC 3.9 L RBC 3.71 L Hgb 11.1 L Hct 33.1 L MCV 89.2 MCH 29.9 MCHC 33.5 RDW 13.2 Plt Count 413 H MPV 8.7 Sodium 139 142 Potassium 2.6 L* 3.5 Chloride 104 112 H Carbon Dioxide 26 24 Anion Gap 9 6 L BUN 6 L 9 Creatinine 0.90 0.70 Estim Creat Clear Calc 72 91 Estimated GFR > 60 > 60 Glucose 97 77 Calcium 7.1 L 8.1 L Magnesium 6.6 H 2.8 H OB - PN A/P Plan Comments: 1. eclampsia gambling monitor labs stable increase to labetalol 600mg BID continue to monitor blood pressures Consider discharge this evening if BP remain under 150/100, spoke with DR. Baig and he confirmed plan Time Spent With Patient Time: Total time spent is greater than 50% in coordination of care (as documented) at patient's floor/unit and/or counseling patient: Review of Systems Review of Systems: All systems reviewed & are unremarkable except as noted in HPI and below Exam Narrative: Exam Narrative: incision CDI Const: General: cooperative Nutritional Appearance: average body habitus HENMT: Head: normal to inspection Resp: Effort & Inspection: normal respiratory effort Neuro: General: patient oriented x3 Speech: normal speech Extrem: Right lower extremity: normal to inspection Left lower extremity: normal to inspection Psych: Appearance: grossly normal Affect: normal affect
--- NOTE | 2020-09-03 15:49 | PM.IMPN ---
Progress Note: A&P Assessment and Plan (1) Eclampsia: Code(s): O15.9 - Eclampsia, unspecified as to time period Status: Acute Assessment and Plan: 09/03/20 15:49 Patient 30-year-old female status post 20 days presented emergency depart from delivery patient presented emergency department with a complaint of head and was significant elevated blood pressure, patient was seen by OBGYN and suspect patient is having Eclampsia initially patient combative and agitated however patient went into seizure and IV magnesium was started and transfer the patient to IMU, initially patient was given magnesium for g IV loading dose thereafter continue IV magnesium 20 g 50 cc an hour patient is also being treated labetalol 400 mg p.o. twice a day, currently patient states feeling much better, blood pressure is controlled and patient has no complaint, patient was seen by her Ob plan is to once patient completes IV magnesium, will monitor patient overnight and if remains clinically stable her blood pressure remains stable will discharge the patient home tomorrow. 09/03 today patient states feeling better denies any complaint of chest pain or shortness of breath, he has not had any seizure while in the hospital, patient was seen by OBGYN increased labetalol to 600 mg b.i.d. and recommended with blood pressure below 150/100 later in the evening patient can be discharged home, continue to monitor and further recommendation to follow (2) state: Code(s): Z39.2 - Encounter for routine follow-up Status: Acute Assessment and Plan: Patient is 20 days patient is seen by her Ob and further recommendation to (3) delivery delivered: Code(s): O82 - Encounter for delivery without indication Status: Acute Assessment and Plan: Patient clinically stable, seen by her Ob Subjective Date/time seen: 09/03/20 15:49 Patient 30-year-old female status post 20 days presented emergency depart from delivery patient presented emergency department with a complaint of head and was significant elevated blood pressure, patient was seen by OBGYN and suspect patient is having Eclampsia initially patient combative and agitated however patient went into seizure and IV magnesium was started and transfer the patient to IMU, initially patient was given magnesium for g IV loading dose thereafter continue IV magnesium 20 g 50 cc an hour patient is also being treated labetalol 400 mg p.o. twice a day, currently patient states feeling much better, blood pressure is controlled and patient has no complaint, patient was seen by her Ob plan is to once patient completes IV magnesium, will monitor patient overnight and if remains clinically stable her blood pressure remains stable will discharge the patient home tomorrow. 09/03 today patient states feeling better denies any complaint of chest pain or shortness of breath, he has not had any seizure while in the hospital, patient was seen by OBGYN increased labetalol to 600 mg b.i.d. and recommended with blood pressure below 150/100 later in the evening patient can be discharged home, continue to monitor and further recommendation to follow Review of Systems Review of Systems: All systems reviewed & are unremarkable except as noted in HPI and below Exam Narrative: Exam Narrative: Patient is comfortable, NAD HEENT: eyes are clear and none icteric LUNGS: Normal respiratory effort ABD: Not distended Lower extremities: no edema SKIN: nonjaundiced Neuro: grossly intact normal speech. Objective Data Vital Signs Vital Signs: Vital Signs - 24 hr 09/02/20 16:00 09/02/20 18:00 09/02/20 18:30 Temperature 98.3 F Pulse Rate 92 89 84 Respiratory Rate 12 Blood Pressure 141/95 H Pulse Oximetry 100 09/02/20 19:52 09/02/20 20:00 09/02/20 22:00 Temperature 97.9 F Pulse Rate 86 80 87 Respiratory Rate 12
--- NOTE | 2020-09-03 17:05 | PM.OBPRVD ---
OB - Delivery Note Procedure Delivery date: 09/03/20 Procedure: vaginal delivery Intrapartal events: None Induction method: none Delivery augmentation: pitocin Delivery monitor: external FHT and external uterine Route of delivery: Laceration Description: None Specimen: No Quantitative Blood Loss (ml): 192 Anesthesia type: Epidural Disposition: floor [place] Baby Date of : 09/03/20 Time of : 16:49 Weeks of gestation at delivery: 39 Infant gender: Female Weight (pounds): 7 Weight (ounces): 1 presentation: vertex position: Left Occiput Anterior Placenta delivery description: Spontaneous cord vessel description: 3 Vessels and Clamped/Cut score one minute: 9 score five minutes: 9 Narrative: mother and baby in stable condition skin to skin
[2020-09-03] MEDS: LABETALOL HCL 100 MG TABLET 600 MG PO (17:19)
[2020-09-03 17:29] LABS: Basophils Percent Auto 0.7 % (0.2-1.2); Eosinophils Absolute Auto 0.3 K/mm3 (0-0.3); Eosinophils Percent Auto 5.8 % (0-4.4); Hemoglobin 10.9 g/dL (12.0-15.0); Lymphocytes Absolute Auto 1.79 K/mm3 (0.9-3.2); Lymphocytes Percent Auto 41.2 % (18.3-44.2); Mean Corpuscular HGB Conc 31.1 g/dl (32-36); Mean Corpuscular Hemoglobin 29.1 pg (26-34); Mean Corpuscular Volume 93.6 fl (80-100); Mean Platelet Volume 8.3 fl (7.4-10.4); Monocytes Absolute Auto 0.4 K/mm3 (0.1-0.6); Monocytes Percent Auto 9.7 % (2.6-8.5); Neutrophils Absolute Auto 1.9 K/mm3 (1.3-6.7); Neutrophils Percent Auto 42.6 % (45.5-73.1); Platelet Count Result 367 k/mm3 (150-375); Red Blood Count 3.74 M/mm3 (4.2-5.4); Red Cell Distribution Width 13.6 % (11.5-14.5); White Blood Count 4.3 K/mm3 (4.5-10.0)
[2020-09-03 17:41] LABS: Alanine Aminotransferase 18 U/L (4-35); Albumin Level 3.8 g/dL (3.5-5.1); Alkaline Phosphatase 93 U/L (38-126); Anion Gap 8 mmol/L (8-16); Aspartate Amino Transferase 22 U/L (14-36); Bilirubin,Total 0.4 mg/dL (0.2-1.3); Blood Urea Nitrogen 11 mg/dL (7-17); Carbon Dioxide 21 mmol/L (22-30); Chloride 112 mmol/L (98-107); Estimated CRCL calculation 91 ml/min; Estimated Glomerular Filt Rate > 60; Glucose 95 mg/dL (65-105); Potassium 4.3 mmol/L (3.4-5.0); Sodium 141 mmol/L (137-145); Uric Acid 5.1 mg/dL (2.5-7.5)
[2020-09-03] MEDS: NIFEdipine 30 MG TAB.ER.24 60 MG PO (17:56)
[2020-09-04] VITALS (39 sets, daily range): BP systolic 130–192; BP diastolic 73–111; PULSE 64–114; RESP 12–18; TEMP 36.4–36.8; O2SAT 99–100
[2020-09-04] MEDS: LABETALOL HCL INJ 100 MG/20 ML VIAL 20 MG IV PUSH ×2 (01:48→17:12)
--- NOTE | 2020-09-04 01:54 | PC.NURSE ---
Pt's bp elevated again. Midnight pressure was 187/92, pt was a little upset. Waited an hour to recheck and the result was 192/89. Dr Baig notified. Received order to restart magnesium drip at 2gm/hr.Dr Baig had ordered 400 mg of po Labetolol to give now and change dose to 1000mg q12h if pt refused magnesium drip. Pt was hesitant and wanted to wait to see if bp resolved on its own. Dr Baig called back to check status and informed him of refusal. Order to give iv labetolol 20mg x1 and hold fluids. Recheck in 30 minutes.
[2020-09-04 05:01] LABS: Hematocrit 36.3 % (37.0-47.0); Hemoglobin 11.5 g/dL (12.0-15.0); Mean Corpuscular HGB Conc 31.7 g/dl (32-36); Mean Corpuscular Hemoglobin 29.6 pg (26-34); Mean Corpuscular Volume 93.6 fl (80-100); Mean Platelet Volume 8.7 fl (7.4-10.4); Platelet Count Result 403 k/mm3 (150-375); Red Blood Count 3.88 M/mm3 (4.2-5.4); Red Cell Distribution Width 13.5 % (11.5-14.5); White Blood Count 4.6 K/mm3 (4.5-10.0)
[2020-09-04 05:20] LABS: Anion Gap 8 mmol/L (8-16); Blood Urea Nitrogen 8 mg/dL (7-17); Calcium 11.2 mg/dL (8.4-10.2); Carbon Dioxide 25 mmol/L (22-30); Chloride 108 mmol/L (98-107); Estimated CRCL calculation 91 ml/min; Estimated Glomerular Filt Rate > 60; Glucose 94 mg/dL (65-105); Magnesium 1.6 mg/dL (1.6-2.3); Potassium 4.1 mmol/L (3.4-5.0); Sodium 141 mmol/L (137-145)
[2020-09-04] MEDS: LABETALOL HCL 100 MG TABLET 600 MG PO (05:45)
--- NOTE | 2020-09-04 11:36 | P.PNOB_ITS ---
Pain Control Date/time seen: 09/04/20 11:36
--- NOTE | 2020-09-04 11:36 | PM.OBPNLAB ---
Pain Control Date/time seen: 09/04/20 11:36
--- NOTE | 2020-09-04 11:37 | PM.OBPNVD ---
OB - PN: Subj Subjective Date/time seen: 09/04/20 11:37 Patient comments: no complaints Narrative: pt asymptomatic, no c/o gallardo, visual changes, epigastric pain, pt desires to go home. BP's non severe range this am, was given 20mg IV labetalol overnight for sever range pressure. OB - PN: Obj Data Labs CBC & Chem 7: 09/04/20 04:16 09/04/20 04:16 Labs: Laboratory Results - last 24 hr 09/03/20 09/03/20 09/04/20 17:20 17:20 04:16 WBC 4.3 L 4.6 RBC 3.74 L 3.88 L Hgb 10.9 L 11.5 L Hct 35.0 L 36.3 L MCV 93.6 93.6 MCH 29.1 29.6 MCHC 31.1 L 31.7 L RDW 13.6 13.5 Plt Count 367 403 H MPV 8.3 8.7 Immature Gran % (Auto) 0.0 Neut % (Auto) 42.6 L Lymph % (Auto) 41.2 Wallace % (Auto) 9.7 H Eos % (Auto) 5.8 H Baso % (Auto) 0.7 Lymph # (Auto) 1.79 Wallace # (Auto) 0.4 Eos # (Auto) 0.3 Baso # (Auto) 0.0 Abs Immat Gran (auto) 0.00 Absolute Neuts (auto) 1.9 Absolute Nucleated RBC 0.0 Nucleated RBC % 0.0 Sodium 141 Potassium 4.3 Chloride 112 H Carbon Dioxide 21 L Anion Gap 8 BUN 11 Creatinine 0.70 Estim Creat Clear Calc 91 Estimated GFR > 60 Glucose 95 Uric Acid 5.1 Calcium 10.0 Magnesium Total Bilirubin 0.4 AST 22 ALT 18 Alkaline Phosphatase 93 Total Protein 7.0 Albumin 3.8 09/04/20 04:16 WBC RBC Hgb Hct MCV MCH MCHC RDW Plt Count MPV Immature Gran % (Auto) Neut % (Auto) Lymph % (Auto) Wallace % (Auto) Eos % (Auto) Baso % (Auto) Lymph # (Auto) Wallace # (Auto) Eos # (Auto) Baso # (Auto) Abs Immat Gran (auto) Absolute Neuts (auto) Absolute Nucleated RBC Nucleated RBC % Sodium 141 Potassium 4.1 Chloride 108 H Carbon Dioxide 25 Anion Gap 8 BUN 8 Creatinine 0.70 Estim Creat Clear Calc 91 Estimated GFR > 60 Glucose 94 Uric Acid Calcium 11.2 H Magnesium 1.6 Total Bilirubin AST ALT Alkaline Phosphatase Total Protein Albumin OB - PN A/P Plan Comments: pt s/p rpt section, admitted for severe range blood pressures and subsequent seizure 1. eclampsia increase to 800mg labetalol BID 60mg Procardia at hs labs stable spoke with Dr. Baig and will continue to monitor pt, do not recommend discharge at this time Time Spent With Patient Time: Total time spent is greater than 50% in coordination of care (as documented) at patient's floor/unit and/or counseling patient: Review of Systems Review of Systems: All systems reviewed & are unremarkable except as noted in HPI and below Exam Const: General: cooperative Nutritional Appearance: average body habitus Orientation/consciousness: patient oriented x3 Skin: General skin exam: normal color Neuro: General: patient oriented x3 Speech: normal speech Extrem: General: normal to inspection Right lower extremity: normal to inspection Left lower extremity: normal to inspection Psych: Appearance: grossly normal Affect: normal affect Attitude: cooperative Thought process: Normal thought process present Thought content: Yes Normal thought content present Judgement: Good judgement present (Psych)
[2020-09-04] MEDS: LABETALOL HCL 100 MG TABLET 200 MG PO ×2 (12:16→21:56)
--- NOTE | 2020-09-04 14:18 | PM.IMPN ---
Progress Note: A&P Assessment and Plan (1) Eclampsia: Code(s): O15.9 - Eclampsia, unspecified as to time period Status: Acute Assessment and Plan: 09/04/20 14:18 Patient 30-year-old female status post 20 days presented emergency depart from delivery patient presented emergency department with a complaint of head and was significant elevated blood pressure, patient was seen by OBGYN and suspect patient is having Eclampsia initially patient combative and agitated however patient went into seizure and IV magnesium was started and transfer the patient to IMU, initially patient was given magnesium for g IV loading dose thereafter continue IV magnesium 20 g 50 cc an hour patient is also being treated labetalol 400 mg p.o. twice a day, currently patient states feeling much better, blood pressure is controlled and patient has no complaint, patient was seen by her Ob plan is to once patient completes IV magnesium, will monitor patient overnight and if remains clinically stable her blood pressure remains stable will discharge the patient home tomorrow. 09/03 today patient states feeling better denies any complaint of chest pain or shortness of breath, he has not had any seizure while in the hospital, patient was seen by OBGYN increased labetalol to 600 mg b.i.d. and recommended with blood pressure below 150/100 later in the evening patient can be discharged home, continue to monitor and further recommendation to follow. 09/04 today patient states feeling better denies any complaint of chest pain or shortness of breath, he has not had any seizure while in the hospital, however last night patient blood pressure was elevated and was given labetalol 20 mg IV, patient was seen by Ob increased labetalol 800 mg b.i.d. from 600 mg b.i.d., recommended to monitor 1 more day reassess tomorrow and further recommendation to follow. (2) state: Code(s): Z39.2 - Encounter for routine follow-up Status: Acute Assessment and Plan: Patient is 20 days patient is seen by her Ob and further recommendation to (3) delivery delivered: Code(s): O82 - Encounter for delivery without indication Status: Acute Assessment and Plan: Patient clinically stable, seen by her Ob Subjective Date/time seen: 09/04/20 14:18 Patient 30-year-old female status post 20 days presented emergency depart from delivery patient presented emergency department with a complaint of head and was significant elevated blood pressure, patient was seen by OBGYN and suspect patient is having Eclampsia initially patient combative and agitated however patient went into seizure and IV magnesium was started and transfer the patient to IMU, initially patient was given magnesium for g IV loading dose thereafter continue IV magnesium 20 g 50 cc an hour patient is also being treated labetalol 400 mg p.o. twice a day, currently patient states feeling much better, blood pressure is controlled and patient has no complaint, patient was seen by her Ob plan is to once patient completes IV magnesium, will monitor patient overnight and if remains clinically stable her blood pressure remains stable will discharge the patient home tomorrow. 09/03 today patient states feeling better denies any complaint of chest pain or shortness of breath, he has not had any seizure while in the hospital, patient was seen by OBGYN increased labetalol to 600 mg b.i.d. and recommended with blood pressure below 150/100 later in the evening patient can be discharged home, continue to monitor and further recommendation to follow. 09/04 today patient states feeling better denies any complaint of chest pain or shortness of breath, he has not had any seizure while in the hospital, however last night patient blood pressure was elevated and was given labetalol 20 mg IV, patient was seen by Ob increased labetalol 800 mg b.i.d. fro
[2020-09-04] MEDS: NIFEdipine 30 MG TAB.ER.24 120 MG PO (18:38)
[2020-09-04] MEDS: LABETALOL HCL 100 MG TABLET 800 MG PO (18:38)
--- NOTE | 2020-09-04 18:47 | PC.NURSE ---
This patient, Benigno Morfin, was transferred to [[id number]] on 09/04/20 at 1750. Personal belongings sent with patient. Report given to [ Gino Olvera]. Appropriate documentation sent with patient.
--- NOTE | 2020-09-04 18:52 | PC.NURSE ---
Natalioer obtained from Dr. Baig at 1700 for bp 185/102 Labetalol 20 mg IVP, and order obtained to transfer patient to OB for continued monitoring.
--- NOTE | 2020-09-04 21:44 | PC.NURSE ---
Called Dr. Baig at 2137- BP reviewed. update given. order received for Labetalol 200mg once now. will continue to monitor and call if SBP >180.
[2020-09-05] VITALS (12 sets, daily range): BP systolic 115–145; BP diastolic 71–99; PULSE 72–95; TEMP 36.1–36.2
--- NOTE | 2020-09-05 04:40 | PC.NURSE ---
0215- pt resting quietly, BP cuff not reading due to pt getting up to the bathroom. BP cuff reapplied and BP taken. no complaints of pain. will continue to monitor.
[2020-09-05 05:35] LABS: Hematocrit 38.2 % (37.0-47.0); Hemoglobin 12.5 g/dL (12.0-15.0); Mean Corpuscular HGB Conc 32.7 g/dl (32-36); Mean Corpuscular Hemoglobin 29.3 pg (26-34); Mean Corpuscular Volume 89.7 fl (80-100); Mean Platelet Volume 8.5 fl (7.4-10.4); Platelet Count Result 403 k/mm3 (150-375); Red Blood Count 4.26 M/mm3 (4.2-5.4); Red Cell Distribution Width 12.9 % (11.5-14.5); White Blood Count 4.9 K/mm3 (4.5-10.0)
[2020-09-05 05:52] LABS: Anion Gap 8 mmol/L (8-16); Blood Urea Nitrogen 11 mg/dL (7-17); Calcium 11.1 mg/dL (8.4-10.2); Carbon Dioxide 25 mmol/L (22-30); Chloride 107 mmol/L (98-107); Estimated CRCL calculation 81 ml/min; Estimated Glomerular Filt Rate > 60; Glucose 93 mg/dL (65-105); Magnesium 1.5 mg/dL (1.6-2.3); Potassium 4.5 mmol/L (3.4-5.0); Sodium 140 mmol/L (137-145)
[2020-09-05] MEDS: LABETALOL HCL 100 MG TABLET 800 MG PO (06:46)
--- NOTE | 2020-09-05 08:18 | PM.GYNPNOP ---
SENIOR FOREMAN - A/P Postoperative Postoperative day: 21 Postoperative plan: other (DC home today. BPs 120s-130s/80s-90s. DIscussed precautions, will FU for BP check this week.) Time Spent With Patient Time: Total time spent is greater than 50% in coordination of care (as documented) at patient's floor/unit and/or counseling patient: Time with patient: less than 15 minutes SENIOR FOREMAN- PN:Subj Post-Op Subjective Date/time seen: 09/05/20 08:18 Interval history: Kaykay feels great. Very excited to see her kids. Denies any LAI or visual problems. No weakness. No residual effects from seizure. Subjective: patient reports feeling better and patient has no complaints Exam Narrative: Exam Narrative: NAD abdomen soft, nontender, fundus firm below the umbilicus Extremities nontender, no edema GI: GI Palp: Yes Soft to palpation Auscultation: normal bowel sounds Neuro: General: oriented to person, oriented to place, oriented to time and moves all extremities Extrem: General: normal to inspection and full ROM Psych: Mental Status: mental status grossly normal Affect: normal affect SENIOR FOREMAN - PN: Obj Data Vital Signs Vital Signs: Vital Signs - 24 hr 09/04/20 10:00 09/04/20 12:00 09/04/20 12:16 Temperature 98.2 F Pulse Rate 91 74 68 Respiratory Rate 12 Blood Pressure 157/99 H Pulse Oximetry 100 09/04/20 13:17 09/04/20 14:00 09/04/20 16:00 Temperature 97.6 F Pulse Rate 64 97 Respiratory Rate 14 Blood Pressure 163/100 H 186/104 H Pulse Oximetry 100 09/04/20 16:30 09/04/20 17:12 09/04/20 17:45 Temperature Pulse Rate 71 Respiratory Rate Blood Pressure 185/102 H 181/109 H Pulse Oximetry 09/04/20 18:30 09/04/20 18:37 09/04/20 18:38 Temperature 97.6 F Pulse Rate 65 65 Respiratory Rate Blood Pressure 186/99 H Pulse Oximetry 09/04/20 18:46 09/04/20 19:00 09/04/20 19:15 Temperature Pulse Rate 70 77 66 Respiratory Rate Blood Pressure 185/107 H 168/111 H 183/98 H Pulse Oximetry 09/04/20 19:30 09/04/20 19:45 09/04/20 20:00 Temperature Pulse Rate 69 114 H 76 Respiratory Rate Blood Pressure 176/98 H 131/101 H 172/99 H Pulse Oximetry 09/04/20 20:30 09/04/20 21:00 09/04/20 21:30 Temperature Pulse Rate 75 76 66 Respiratory Rate Blood Pressure 163/97 H 177/100 H 180/89 H Pulse Oximetry 09/04/20 21:56 09/04/20 22:00 09/04/20 22:30 Temperature Pulse Rate 66 66 74 Respiratory Rate Blood Pressure 169/108 H 154/97 H Pulse Oximetry 09/04/20 23:00 09/04/20 23:30 09/05/20 00:00 Temperature Pulse Rate 74 71 92 Respiratory Rate Blood Pressure 130/85 143/87 H 123/84 Pulse Oximetry 09/05/20 00:30 09/05/20 01:00 09/05/20 02:25 Temperature 97.0 F L Pulse Rate 86 88 81 Respiratory Rate Blood Pressure 127/92 H 145/99 H 115/71 Pulse Oximetry 09/05/20 03:00 09/05/20 04:00 09/05/20 05:00 Temperature Pulse Rate 95 85 92 Respiratory Rate Blood Pressure 132/98 H 124/83 115/75 Pulse Oximetry 09/05/20 05:38 09/05/20 06:00 09/05/20 06:46 Temperature 97.2 F L Pulse Rate 76 72 Respiratory Rate Blood Pressure 125/91 H Pulse Oximetry 09/05/20 07:00 09/05/20 08:00 Temperature Pulse Rate 76 85 Respiratory Rate Blood Pressure 122/91 H 120/82 Pulse Oximetry Intake/Output Intake/Output: Intake & Output 09/02/20 09/03/20 09/04/20 09/05/20 23:59 23:59 23:59 23:59 Intake Total 5580 3700 3018 400 Output Total 3550 800 2100 600 Balance 2030 2900 918 -200 Meds/Results Medications: Active Medications Generic Name Dose Route Start Last Admin Trade Name Freq PRN Reason Stop Dose Admin Hydrocodone Bitart/Acetaminophen 1 tab 09/01/20 21:19 Hydrocodone/Acetaminophen (*Crx) 10-325 Mg Tablet PO Q4H PRN Pain Rated 7-10 Butalbital/Aspirin/Caffeine 2 cap 09/01/20 12:42 06/13/21 01:26 Acetamin/Butalbital/Caffeine 1 Capsule PO 2 cap Q4H PRN Administrat
--- NOTE | 2020-09-05 08:21 | PC.NURSE ---
0810--Dr. Barrera at bedside.Plan of care discussed.Discharge plan discussed.
--- NOTE | 2020-09-05 09:35 | PM.DS ---
DS: Admitting Diagnosis Admitting Diagnosis Admitting Diagnosis: hypertension, DS: Discharge Diagnosis Discharge Diagnosis (1) Eclampsia: Code(s): O15.9 - Eclampsia, unspecified as to time period Status: Acute (2) state: Code(s): Z39.2 - Encounter for routine follow-up Status: Acute DS: Summary Hospital Course Reason for hospitalization: elevated BPs Hospital Course: The patient was admitted with severely elevated blood pressures at 2 weeks and a headache. Shortly after her arrival to the hospital she had a generalized tonic clonic seizure and she was diagnosed with Eclampsia. She received antiepileptic medication including magnesium sulfate, which was continued for 24 hours. Blood pressures were normal or mildly elevated on magnesium, but once it was discontinued, her blood pressures were hard to control. Medications were titrated up to a dose of labetalol 800 BID and nifedipine Xl 120mg q day and BPs were normal or only mildly elevated on this regimen. She also had hypokalemia which was corrected. She was determined to be stable for discharge. She has no residual defecits or functional changes from baseline. Status at Discharge Functional status at discharge: independent ambulation Overall status at discharge: patient is back to baseline Time Spent with Patient Time attestation: Total time spent providing and/or coordinating discharge services: Time spent: Greater than 30 minutes Exam Narrative: Exam Narrative: NAD abdomen soft, nontender, fundus firm below the umbilicus Extremities nontender, no edema DS: Data Data Completed and Pending Labs on day of discharge: Labs from last 24 hours 09/05/20 09/05/20 05:26 05:26 WBC 4.9 RBC 4.26 Hgb 12.5 Hct 38.2 MCV 89.7 MCH 29.3 MCHC 32.7 RDW 12.9 Plt Count 403 H MPV 8.5 Sodium 140 Potassium 4.5 Chloride 107 Carbon Dioxide 25 Anion Gap 8 BUN 11 Creatinine 0.80 Estim Creat Clear Calc 81 Estimated GFR > 60 Glucose 93 Calcium 11.1 H Magnesium 1.5 L Discharge Plan Discharge Attending physician on discharge: Park Barrera Consulting providers: Autumn Patten Discharging Clinician: Park Barrera Anticipated Discharge Date/Time: 09/05/20 10:00 Patient Disposition: Home, Self-Care Activity: may shower and pelvic rest Diet: regular Patient Instructions: Antibiotic Form, Labetalol (By mouth), Preeclampsia and Eclampsia After Delivery (GEN) Stand Alone Forms: General Discharge Information Follow-up/Referrals: Park Barrera MD [Physician] - Other (2 days) Discharge Medications: New labetalol 100 mg Tablet 800 mg PO Q12H Qty: 480 RF: 0 nifedipine [Procardia XL] 30 mg Tablet Extended Release 24hr 120 mg PO QPM Qty: 120 RF: 0 Continued PNV [id number] fumarate-FA [] 28 mg iron- 800 mcg Tablet 1 tablet PO DAILY RF: 0 docusate sodium 100 mg Capsule 100 mg PO BID PRN (Reason: constipation) Qty: 60 RF: 1 ibuprofen 600 mg Tablet 600 mg PO Q6H PRN (Reason: Cramping) Qty: 60 RF: 1 Discontinued labetalol 200 mg Tablet 200 mg PO Q12H Qty: 14 RF: 0 Date of admission: 09/02/20 09:39 Primary Care Provider: PHYSICIAN,GLAZE WIPER Admitting Provider: Park Barrera Attending physician on admission: Park Barrera Condition: Stable
--- NOTE | 2020-09-05 12:47 | PM.IMPN ---
Subjective Date/time seen: 09/05/20 12:47 Patient was discharge this am by her attending before I could see her. Objective Data Vital Signs Vital Signs: Vital Signs - 24 hr 09/04/20 13:17 09/04/20 14:00 09/04/20 16:00 Temperature 97.6 F Pulse Rate 64 97 Respiratory Rate 14 Blood Pressure 163/100 H 186/104 H Pulse Oximetry 100 09/04/20 16:30 09/04/20 17:12 09/04/20 17:45 Temperature Pulse Rate 71 Respiratory Rate Blood Pressure 185/102 H 181/109 H Pulse Oximetry 09/04/20 18:30 09/04/20 18:37 09/04/20 18:38 Temperature 97.6 F Pulse Rate 65 65 Respiratory Rate Blood Pressure 186/99 H Pulse Oximetry 09/04/20 18:46 09/04/20 19:00 09/04/20 19:15 Temperature Pulse Rate 70 77 66 Respiratory Rate Blood Pressure 185/107 H 168/111 H 183/98 H Pulse Oximetry 09/04/20 19:30 09/04/20 19:45 09/04/20 20:00 Temperature Pulse Rate 69 114 H 76 Respiratory Rate Blood Pressure 176/98 H 131/101 H 172/99 H Pulse Oximetry 09/04/20 20:30 09/04/20 21:00 09/04/20 21:30 Temperature Pulse Rate 75 76 66 Respiratory Rate Blood Pressure 163/97 H 177/100 H 180/89 H Pulse Oximetry 09/04/20 21:56 09/04/20 22:00 09/04/20 22:30 Temperature Pulse Rate 66 66 74 Respiratory Rate Blood Pressure 169/108 H 154/97 H Pulse Oximetry 09/04/20 23:00 09/04/20 23:30 09/05/20 00:00 Temperature Pulse Rate 74 71 92 Respiratory Rate Blood Pressure 130/85 143/87 H 123/84 Pulse Oximetry 09/05/20 00:30 09/05/20 01:00 09/05/20 02:25 Temperature 97.0 F L Pulse Rate 86 88 81 Respiratory Rate Blood Pressure 127/92 H 145/99 H 115/71 Pulse Oximetry 09/05/20 03:00 09/05/20 04:00 09/05/20 05:00 Temperature Pulse Rate 95 85 92 Respiratory Rate Blood Pressure 132/98 H 124/83 115/75 Pulse Oximetry 09/05/20 05:38 09/05/20 06:00 09/05/20 06:46 Temperature 97.2 F L Pulse Rate 76 72 Respiratory Rate Blood Pressure 125/91 H Pulse Oximetry 09/05/20 07:00 09/05/20 08:00 Temperature Pulse Rate 76 85 Respiratory Rate Blood Pressure 122/91 H 120/82 Pulse Oximetry Intake/Output Intake/Output: Intake & Output 09/02/20 09/03/20 09/04/20 09/05/20 23:59 23:59 23:59 23:59 Intake Total 5580 3700 3018 880 Output Total 3550 800 2100 900 Balance 2030 2900 918 -20 Meds/Results Radiology Results: ITS Impressions Head CT 09/01/20 16:51 IMPRESSION: 1. Mild white matter disease, likely acute hypertensive encephalopathy. Labs Labs: Laboratory Results - last 24 hr 09/05/20 09/05/20 05:26 05:26 WBC 4.9 RBC 4.26 Hgb 12.5 Hct 38.2 MCV 89.7 MCH 29.3 MCHC 32.7 RDW 12.9 Plt Count 403 H MPV 8.5 Sodium 140 Potassium 4.5 Chloride 107 Carbon Dioxide 25 Anion Gap 8 BUN 11 Creatinine 0.80 Estim Creat Clear Calc 81 Estimated GFR > 60 Glucose 93 Calcium 11.1 H Magnesium 1.5 L
== END 2020-09-05 09:41 | disposition home or self-care (01) | DRG 561 ==
LOC: ANHOBOP 11:12 → ANHOBPP 11:14 → ANHOBOP 14:08 → ANHOBPP 14:08 → ANHIMU 17:59 → ANHOBPP 09-05 09:34 → ANHIMU 09-06 09:08 → ANHOBPP 09-06 09:08
PROVIDERS: Advanced Practice Midwife; Family Medicine; Obstetrics & Gynecology; Admitting Provider Obstetrics & Gynecology; Visit Provider Obstetrics & Gynecology
DX: O15.2 Eclampsia complicating the puerperium (principal); O99.345 Other mental disorders complicating the puerperium; F31.9 Bipolar disorder, unspecified
CPT/HCPCS: 36415; 70450; 80048; 80053; 82948; 83735; 84550; 85025; 85027; A9270; J0360; J2405; J3360; J3475; J7120